=== PATIENT | male | born 1955 | race Caucasian/White ===

== ENCOUNTER 2019-06-01 22:19 | Observation (INO) | payer MEDICARE, MEDICAID ==
[~2019-06-01] VITALS: Ht 177.8 cm; Wt 138.0 kg
[~2019-06-01 22:19] MED LIST: AMLO10TA4 PO; ASPI-611 PO; CARV12.5 PO; FURO-149 PO; LOSA100T3 PO; METF500T20 PO; OMEP20CA15 PO; POTA8TAB8 PO; SIMV-42 PO; WARF5TAB PO
[2019-06-01 22:40] LABS: BASOPHILS # (AUTO) 0.1 X10'3 (0-0.2); BASOPHILS % (AUTO) 1.1 % (0-1); EOSINOPHILS # (AUTO) 0.4 X10'3 (0-0.9); HEMATOCRIT 44.2 % (42.0-52.0); HEMOGLOBIN 15.1 g/dl (14.0-17.9); LYMPHOCYTES # (AUTO) 2.8 X10'3 (1.1-4.8); LYMPHOCYTES % (AUTO) 23.9 % (21-51); MEAN CORPUSCULAR HEMOGLOBIN 29.5 PG (27.0-31.0); MEAN CORPUSCULAR HGB CONC 34.2 g/dL (33.0-36.5); MEAN CORPUSCULAR VOLUME 86.2 FL (78-98); MEAN PLATELET VOLUME 7.6 FL (7.4-10.4); MONOCYTES # (AUTO) 0.9 X10'3 (0-0.9); MONOCYTES % (AUTO) 7.7 % (2-12); NEUTROPHILS # (AUTO) 7.6 X10'3 (1.8-7.7); NEUTROPHILS % (AUTO) 64.3 % (42-75); PLATELET COUNT 242 X10'3 (140-440); RED BLOOD COUNT 5.13 X10'6 (4.70-6.10); RED CELL DISTRIBUTION WIDTH 14.2 % (11.5-14.5); WHITE BLOOD COUNT 11.8 X10'3 (4.5-11.0)
--- NOTE | 2019-06-01 22:45 | NUR ---
PT BACK FROM CT - STROKE RN AT BEDSIDE
[2019-06-01 22:52] LABS: PARTIAL THROMBOPLASTIN TIME 32 SECONDS (22-32)
[2019-06-01 22:54] LABS: ALANINE AMINOTRANSFERASE 29 U/L (12-78); ALBUMIN 3.9 G/DL (3.4-5.0); ALKALINE PHOSPHATASE 105 IU/L (46-116); ANION GAP 7 (8-16); ASPARTATE AMINO TRANSFERASE 19 U/L (10-37); BILIRUBIN,TOTAL 0.7 MG/DL (0.1-1.0); BLOOD UREA NITROGEN 16 MG/DL (7-18); BUN/CREATININE RATIO 13.2 (5.4-32.0); CALCIUM 9.4 MG/DL (8.5-10.1); CHLORIDE 104 MMOL/L (99-107); CREATININE 1.21 MG/DL (0.60-1.10); GLUCOSE 119 MG/DL (70-104); POTASSIUM 3.5 MMOL/L (3.5-5.1); SODIUM 140 MMOL/L (135-145); TOTAL CARBON DIOXIDE 28.9 MMOL/L (24-32); TOTAL PROTEIN 7.8 G/DL (6.4-8.2); eGFR 60 ML/MIN
[2019-06-01 22:57] LABS: TROPONIN I < 0.04 NG/ML (0.0-0.05)
--- NOTE | 2019-06-01 23:07 | NUR ---
STROKE RN REMAINS AT BEDSIDE - TELENEURO IN PROCESS NOW
[2019-06-01] MEDS ORDERED: iohexol 350MG/ML 100ml bottle IV ONE (23:23)
[2019-06-02] MEDS ORDERED: dextrose ORAL solution 15 GM/59 ML bottle PO PRN ×2 (01:55)
[2019-06-02] MEDS ORDERED: insulin Lispro (HumaLOG) vial - multi-dose SQ SCH (01:55)
[2019-06-02] MEDS ORDERED: glucagon, human recombinant 1mg kit SUBCUT PRN (01:55)
[2019-06-02] MEDS ORDERED: magnesium hydroxide 30ml (MOM) UD suspension PO PRN (01:55)
[2019-06-02] MEDS ORDERED: MESSAGE TO PHARMACY PO ONE (01:55)
[2019-06-02] MEDS ORDERED: dextrose 50%-water 50ml dispensing syringe IV PRN ×2 (01:55)
[2019-06-02] MEDS ORDERED: mag hydrox/Alum hydrox/simeth 30ml oral suspension PO PRN (01:55)
[2019-06-02] MEDS ORDERED: HYDROcodone/acetaminophen 5mg/325mg tablet PO PRN (01:55)
[2019-06-02] MEDS ORDERED: acetaminophen 325mg tablet PO PRN ×2 (01:55)
[2019-06-02] MEDS ORDERED: HYDROcodone/acetaminophen 10/325mg tab PO PRN (01:55)
[2019-06-02] MEDS ORDERED: morphine 2 MG/ML inj. syringe IV PRN ×2 (01:55)
[2019-06-02] MEDS ORDERED: ondansetron/PF 4mg/2ml inj IV PRN (01:55)
[2019-06-02] MEDS ORDERED: WARF5TAB PO (02:03)
[2019-06-02 02:19] LABS: HEMOGLOBIN A1C 6.2 % (4.5-6.2)
[2019-06-02 02:29] LABS: CHOL/HDL RATIO 4.2 (0.00-4.99); CHOLESTEROL 135 MG/DL (0-200); HDL CHOLESTEROL 32 MG/DL (35-60); LDL CHOLESTEROL 81 MG/DL (50-100); TRIGLYCERIDES 185 MG/DL (20-135)
[2019-06-02 03:00] VITALS: BP 146/88
[2019-06-02] MEDS ORDERED: enoxaparin 50mg/0.5ml (from 3ml vial) syringe SUBCUT ONE (04:10)
[2019-06-02 06:00] VITALS: BP 148/73
--- NOTE | 2019-06-02 06:21 | NUR ---
REPORT GIVEN TO TERRY YANG
--- NOTE | 2019-06-02 06:30 | NUR ---
Patient in room PCU 3018. I have received report from Kim YANG and had the opportunity to ask questions and assume patient care.
[2019-06-02] MEDS: aspirin 325mg tablet, delayed-release (Ecotrin) PO SCH (08:17)
--- NOTE | 2019-06-02 10:38 | NUR ---
PAGER ID: [phone] MESSAGE: Re: Luis Eduardo Lee, Room: 3018A: Pt was unable to do MRI due to anxiety. Can we get an order for Ativan and try MRI again. -[facility] #[id number] Dr. Banerjee paged concerning Ativan order for Pt.
[2019-06-02] MEDS ORDERED: LORazepam 2 mg/ml vial IV ONE (10:45)
[2019-06-02 11:00] VITALS: BP 138/75
--- NOTE | 2019-06-02 11:19 | NUR ---
PAGER ID: [phone] MESSAGE: [id number] Sumeet Lee: Patient refuses to go to MRI because his shoulders will not fit, does not want to take ativan. thanks Gilberto [phone]
--- NOTE | 2019-06-02 12:27 | NUR ---
PAGER ID: [phone] MESSAGE: [id number] Sumeet Lee: Do you want pharmacy to dose coumadin? No coumadin orders and patient states he has been taking coumadin for years, current INR is 1.1. thanks Gilberto [phone]
--- NOTE | 2019-06-02 12:28 | NUR ---
received orders to restart coumadin and to have pharmacy to dose per dr. asif
[2019-06-02] MEDS ORDERED: warfarin 5mg tablet PO SCH (12:45)
[2019-06-02] MEDS ORDERED: furosemide 20MG tablet PO SCH (12:45)
[2019-06-02] MEDS: potassium chloride 8mEq ER tablet PO SCH (13:08)
--- NOTE | 2019-06-02 15:21 | NUR ---
Patient in room ORTHO 4010. I have received report from CELIA Macias and had the opportunity to ask questions and assume patient care.
--- NOTE | 2019-06-02 15:21 | NUR ---
Problems reprioritized. Patient report given, questions answered & plan of care reviewed with Rosa YANG.
[2019-06-02 18:00] VITALS: BP 169/91
--- NOTE | 2019-06-02 18:26 | NUR ---
Problems reprioritized. Patient report given, questions answered & plan of care reviewed with CELIA Ortiz.
[2019-06-02] MEDS ORDERED: carVEDilol 12.5mg tablet PO SCH (20:00)
--- NOTE | 2019-06-02 20:55 | NUR ---
pt refuses to eat "bc i don't fit in the MRI machine so I need to lose weight"
[2019-06-02] MEDS ORDERED: warfarin 5mg tablet PO ONE (21:00)
[2019-06-02] MEDS ORDERED: insulin glargine (Lantus) pen - multi-dose SQ SCH (21:00)
[2019-06-02] MEDS ORDERED: atorvastatin 10mg tablet PO SCH (21:00)
--- NOTE | 2019-06-02 21:40 | NUR ---
noted pt's glucose level is 89. pt still refusing to eat anything. "i hate being in here"
[2019-06-02 22:19] VITALS: BP 174/84
[2019-06-02 22:20] VITALS: BP_SYST 174; BP_SYST 178; BP_SYST 185; BP_DIAS 84; BP_DIAS 88; BP_DIAS 93
[2019-06-02] MEDS ORDERED: [UNRECOGNIZED DRUG - REMARK] PO SCH (23:55)
[2019-06-03 02:00] VITALS: BP 137/76
--- NOTE | 2019-06-03 02:41 | NUR ---
4010B Lee - expressive aphasia returned. last normal 2200 decreased BP 137/76 giving 250ml NS bolus. pt concerned stroke is progressing. called back - no new orders received.
[2019-06-03 02:45] VITALS: BP 164/79
[2019-06-03 03:00] VITALS: BP 141/81
--- NOTE | 2019-06-03 03:30 | NUR ---
pt still c/o "thick tongue" and "I just want to go home and tell my family goodbye before I can't talk at all." emotional support given. educated on extension of stroke and inability to give TPA r/t length of time and pt on coumadin. encouraged that MD will look at meds in am and adjust as needed. elevated HOB, placed pt on 1L oxygen since he does not have his bipap here. pt tolerated better, snoring at this time laying on left side.
--- NOTE | 2019-06-03 05:49 | NUR ---
reported to days. noted pt coumadin dosage and levels need to increase - called RX to request RX to increase dosage. pt also needs hold order for BP meds per Dr. Banerjee's note. Dr. Mahajan declined to change orders.
[2019-06-03 06:10] VITALS: BP 142/85
[2019-06-03 06:10] LABS: BASOPHILS # (AUTO) 0.1 X10'3 (0-0.2); BASOPHILS % (AUTO) 0.6 % (0-1); EOSINOPHILS # (AUTO) 0.2 X10'3 (0-0.9); EOSINOPHILS % (AUTO) 1.3 % (0-6); HEMOGLOBIN 13.7 g/dl (14.0-17.9); LYMPHOCYTES # (AUTO) 2.2 X10'3 (1.1-4.8); MEAN CORPUSCULAR HEMOGLOBIN 28.7 PG (27.0-31.0); MEAN CORPUSCULAR HGB CONC 33.3 g/dL (33.0-36.5); MEAN CORPUSCULAR VOLUME 86.4 FL (78-98); MEAN PLATELET VOLUME 7.6 FL (7.4-10.4); MONOCYTES # (AUTO) 0.8 X10'3 (0-0.9); MONOCYTES % (AUTO) 7.3 % (2-12); NEUTROPHILS # (AUTO) 7.9 X10'3 (1.8-7.7); NEUTROPHILS % (AUTO) 70.8 % (42-75); PLATELET COUNT 211 X10'3 (140-440); RED BLOOD COUNT 4.75 X10'6 (4.70-6.10); WHITE BLOOD COUNT 11.2 X10'3 (4.5-11.0)
[2019-06-03 06:29] LABS: ALBUMIN 3.3 G/DL (3.4-5.0); ANION GAP 5 (8-16); BLOOD UREA NITROGEN 14 MG/DL (7-18); BUN/CREATININE RATIO 13.2 (5.4-32.0); CALCIUM 8.6 MG/DL (8.5-10.1); CHLORIDE 108 MMOL/L (99-107); CHOLESTEROL 112 MG/DL (0-200); CREATININE 1.06 MG/DL (0.60-1.10); GLUCOSE 98 MG/DL (70-104); HDL CHOLESTEROL 28 MG/DL (35-60); LDL CHOLESTEROL 70 MG/DL (50-100); POTASSIUM 3.8 MMOL/L (3.5-5.1); SODIUM 141 MMOL/L (135-145); TOTAL CARBON DIOXIDE 28.4 MMOL/L (24-32); TRIGLYCERIDES 115 MG/DL (20-135); eGFR 70 ML/MIN
--- NOTE | 2019-06-03 06:29 | NUR ---
Patient in room ORTHO 4010. I have received report from Diana YANG and had the opportunity to ask questions and assume patient care.
[2019-06-03 08:00] VITALS: BP_SYST 156; BP_SYST 157; BP_SYST 176; BP_DIAS 68; BP_DIAS 83
[2019-06-03] MEDS: aspirin 325mg tablet, delayed-release (Ecotrin) PO SCH (08:00)
[2019-06-03] MEDS: potassium chloride 8mEq ER tablet PO SCH (08:00)
[2019-06-03] MEDS ORDERED: losartan 50mg tablet PO SCH (08:00)
[2019-06-03] MEDS ORDERED: amLODIPine 5mg tablet PO SCH (08:00)
--- NOTE | 2019-06-03 08:57 | NUR ---
PAGER ID: [phone] MESSAGE: Dr. Banerjee do you think we should hold Sumeet Guidrykins BP medications. There was concern last night that he had an exacerbation of stroke symptoms after his BP meds. Nicol [phone], thank you
[2019-06-03 10:00] VITALS: BP 157/83
--- NOTE | 2019-06-03 10:00 | NUR ---
DR. Banerjee said okay that morning BP meds not given for permissive htn.
[2019-06-03] MEDS ORDERED: WARF1TAB PO (10:43)
[2019-06-03] MEDS ORDERED: WARF6TAB49 PO (10:43)
[2019-06-03] MEDS ORDERED: warfarin 7.5mg tablet PO ONE (21:00)
== END 2019-06-03 13:05 | disposition home or self-care (01) ==
LOC: ER 22:20 → ED HOLD 06-02 01:51 → PCU 3S 06-02 02:50 → ORTHO 4S 06-02 15:30
PROVIDERS: ADMIT Internal Medicine; ATTEND Internal Medicine
DX: R47.1 Dysarthria and anarthria (principal); I10 Essential (primary) hypertension; G45.9 Transient cerebral ischemic attack, unspecified; G47.30 Sleep apnea, unspecified; E11.9 Type 2 diabetes mellitus without complications; E66.01 Morbid (severe) obesity due to excess calories; E78.5 Hyperlipidemia, unspecified; I25.10 Atherosclerotic heart disease of native coronary artery without angina pectoris; I25.2 Old myocardial infarction; G89.29 Other chronic pain; F17.210 Nicotine dependence, cigarettes, uncomplicated; Z79.84 Long term (current) use of oral hypoglycemic drugs; Z79.01 Long term (current) use of anticoagulants; Z79.899 Other long term (current) drug therapy; Z87.442 Personal history of urinary calculi; Z68.41 Body mass index [BMI] 40.0-44.9, adult
CPT/HCPCS: 36415; 70450; 70496; 70498; 71045; 80048; 80053; 80061; 82948; 83036; 83880; 84484; 85025; 85610; 85651; 85730; 86885; 86900; 86901; 87081; 93005; 93306; 96372; 99285; G0378; J1650; Q9967; J1815

== ENCOUNTER 2019-06-28 07:20 | Emergency (ER) | payer MEDICARE, MEDICAID ==
[~2019-06-28] VITALS: Ht 177.8 cm; Wt 131.1 kg
[~2019-06-28 07:20] MED LIST changes: +METF-900 PO; -METF500T20 PO; -OMEP20CA15 PO; +WARF1TAB PO; -WARF5TAB PO; +WARF6TAB49 PO
[2019-06-28 08:04] LABS: BASOPHILS # (AUTO) 0.1 X10'3 (0-0.2); BASOPHILS % (AUTO) 0.5 % (0-1); EOSINOPHILS # (AUTO) 0.2 X10'3 (0-0.9); EOSINOPHILS % (AUTO) 1.5 % (0-6); HEMATOCRIT 46.3 % (42.0-52.0); HEMOGLOBIN 15.8 g/dl (14.0-17.9); LYMPHOCYTES # (AUTO) 2.5 X10'3 (1.1-4.8); MEAN CORPUSCULAR HEMOGLOBIN 29.2 PG (27.0-31.0); MEAN CORPUSCULAR HGB CONC 34.2 g/dL (33.0-36.5); MEAN CORPUSCULAR VOLUME 85.3 FL (78-98); MEAN PLATELET VOLUME 7.9 FL (7.4-10.4); MONOCYTES # (AUTO) 1.2 X10'3 (0-0.9); MONOCYTES % (AUTO) 9.3 % (2-12); NEUTROPHILS # (AUTO) 8.6 X10'3 (1.8-7.7); NEUTROPHILS % (AUTO) 68.7 % (42-75); PLATELET COUNT 246 X10'3 (140-440); RED BLOOD COUNT 5.43 X10'6 (4.70-6.10); WHITE BLOOD COUNT 12.5 X10'3 (4.5-11.0)
[2019-06-28 08:10] LABS: ALANINE AMINOTRANSFERASE 21 U/L (12-78); ALBUMIN 3.9 G/DL (3.4-5.0); ALKALINE PHOSPHATASE 102 IU/L (46-116); AMYLASE 41 U/L (25-115); ANION GAP 9 (8-16); ASPARTATE AMINO TRANSFERASE 14 U/L (10-37); BILIRUBIN,TOTAL 0.9 MG/DL (0.1-1.0); BLOOD UREA NITROGEN 8 MG/DL (7-18); BUN/CREATININE RATIO 7.2 (5.4-32.0); CALCIUM 9.1 MG/DL (8.5-10.1); CHLORIDE 105 MMOL/L (99-107); CREATININE 1.11 MG/DL (0.60-1.10); GLUCOSE 124 MG/DL (70-104); LIPASE 120 U/L (73-393); POTASSIUM 3.2 MMOL/L (3.5-5.1); SODIUM 140 MMOL/L (135-145); TOTAL CARBON DIOXIDE 26.5 MMOL/L (24-32); TOTAL PROTEIN 7.9 G/DL (6.4-8.2); eGFR 66 ML/MIN
--- NOTE | 2019-06-28 09:00 | NUR ---
Received report from Eleanor YANG & assumed care of pt.
[2019-06-28] MEDS ORDERED: MAGN296S68 PO (09:29)
[2019-06-28] MEDS ORDERED: PANT-47 PO (09:29)
[2019-06-28] MEDS ORDERED: pantoprazole 40mg Tablet.DR PO ONE (09:30)
[2019-06-28] MEDS ORDERED: BISA-78 PO (09:30)
[2019-06-28] MEDS ORDERED: bisacodyl 5mg tablet.DR PO ONE (09:30)
[2019-06-28 10:00] LABS: CLARITY,URINE CLEAR (Clear); COLOR,URINE YELLOW (Yellow); GLUCOSE, URINE NEGATIVE (Neg); KETONES,URINE 40 mg/dl (Neg); LEUKOCYTE ESTERASE ,URINE SMALL (Neg); NITRITES, URINE NEGATIVE (Neg); OCCULT BLOOD,URINE NEGATIVE (Neg); PH,URINE 7.5 (4.8-8.0); PROTEIN,URINE TRACE mg/dl (Neg)
[2019-06-28 10:11] VITALS: BP 157/91
[2019-06-28 10:24] LABS: UA COLLECTION TYPE NON-SPECIFIED
[2019-06-28 10:26] LABS: BACTERIA,URINE NONE SEEN /HPF (Neg); RBC,URINE 0-2 /HPF (0-2); SQUAMOUS EPITHELIAL CELL,UR FEW /LPF (FEW); WBC,URINE 0-4 /HPF (0-4)
[2019-06-28 10:35] LABS: OCCULT BLOOD STOOL NEGATIVE (Neg)
== END 2019-06-28 10:14 | disposition home or self-care (01) ==
LOC: ER 07:21
DX: K59.00 Constipation, unspecified (principal); I25.10 Atherosclerotic heart disease of native coronary artery without angina pectoris; I10 Essential (primary) hypertension; I25.2 Old myocardial infarction; E11.9 Type 2 diabetes mellitus without complications; G89.29 Other chronic pain; Z72.89 Other problems related to lifestyle; Z86.73 Personal history of transient ischemic attack (TIA), and cerebral infarction without residual deficits
CPT/HCPCS: 36415; 80053; 81001; 82150; 82272; 83690; 85025; 85610; 87088; 99283